=== PATIENT | female | born 2000 | race Caucasian/White ===

== ENCOUNTER 2022-08-16 15:52 | Emergency (ER) | payer BC, SELFPAY ==
--- NOTE | ~2022-08-16 | XR_ITS ---
EXAM: XR ankle LT min 3V DATE: 08/16/2022 16:53 HISTORY: TRAUMA GRD LEVEL FALL . COMPARISON: None available. FINDINGS: Normal mineralization. No fracture or dislocation. No lytic or blastic lesion. Joint space s are maintained. No erosion or periosteal change. Soft tissues within normal limits. IMPRESSION: No acute osseous finding in the left ankle. Reviewed, dictated and finalized at location K.
--- NOTE | ~2022-08-16 | XR_ITS ---
XR knee LT 3V 08/16/2022 16:54 INDICATION: Left knee pain PROCEDURE: 4 views left knee COMPARISON: No prior studies for comparison. FINDINGS: Fracture, dislocation or subluxation is not identified. The soft tissues appear within norm al limits. No foreign bodies are identified. IMPRESSION: 1: NO ACUTE BONE OR JOINT ABNORMALITY IDENTIFIED. Reviewed, dictated and finalized at location A.
[2022-08-16 15:55] VITALS: BP 96/77; PULSE 83; RESP 16; TEMP 36.6; O2SAT 97
--- NOTE | 2022-08-16 16:31 | ED.LOWEXIN ---
HPI - Extremity Injury (Lower) General Chief Complaint: Extremity Injury, Lower Stated Complaint: left knee pain Time Seen by Provider: 08/16/22 16:24 Source: patient Mode of arrival: ambulatory Limitations: no limitations History of Present Illness HPI Narrative: PATIENT IS A 22-YEAR-OLD WHITE FEMALE SLIPPED ON WET FLOOR HIT HER LEFT ANKLE AND KNEE COMPLAINS OF PAIN AND LIMPING. NO PREVIOUS INJURY. NO OTHER INJURIES. THIS OCCURRED AROUND 3:30 P.M. TODAY. SHE STATED SHE FELT A LITTLE DIZZY SAID SHE DID NOT HAVE ANY LOSS OF CONSCIOUSNESS OR HIT HER HEAD SHE DENIES ANY NUMBNESS OR TINGLING. OR WEAKNESS. DENIES ANY HIP FOOT PAIN . DENIES ANY DIFFICULTY BREATHING OR COUGH. DID NOT TAKE ANY FOR PAIN. Related Data Home Medications Medication Instructions Recorded Confirmed No Home Medications 08/16/22 08/16/22 Allergies Allergy/AdvReac Type Severity Reaction Status Date / Time No Known Allergies Allergy Verified 08/16/22 16:07 Review of Systems Review of Systems: All systems reviewed & are unremarkable except as noted in HPI and below Musculoskeletal: Musculoskeletal: Reports as per HPI, Denies back pain, Denies myalgias, Reports arthralgias, Denies joint swelling and Denies muscle cramps Integumentary/Breasts: Comments: BRUISING AND SCRATCH TO LEFT KNEE FROM DOG RECENTLY. Exam Narrative: PATIENT IS A WHITE FEMALE SHE APPEARS IN NO APPARENT DISTRESS LEFT LOWER EXTREMITY: LEFT HIP NONTENDER FULL RANGE OF MOTION LEFT THIGH NONTENDER LEFT KNEE FULL RANGE OF MOTION MILD TENDERNESS WITH MILD SWELLING INFERIOR TO THE PATELLA WITH BRUISING AND A SMALL SCRATCH MEDIAL TO THE KNEECAP. LEFT KNEE STABLE TO VARUS AND VALGUS STRESS. NEGATIVE EVELYN'S NEGATIVE ANTERIOR AND POSTERIOR DRAWER TEST. LEFT LEG IS NONTENDER LEFT ANKLE MILD MEDIAL AND LATERAL MALLEOLAR TENDERNESS INFERIORLY RANGE OF MOTION OF THE LEFT HIP KNEE ANKLE AND FOOT ARE NORMAL WITH AND FULL. DP AND PT PULSES ARE +2 GAIT ANTALGIC. Course Course Emergency Course: PATIENT WAS GIVEN TYLENOL 1000 MG. XRAYS L ANKLE AND KNEES NAD. Vital Signs Vital signs: Vital Signs Temperature 36.6 C 08/16/22 15:55 Pulse Rate 83 08/16/22 15:55 Respiratory Rate 16 08/16/22 15:55 Blood Pressure 96/77 L 08/16/22 15:55 Pulse Oximetry 97 08/16/22 15:55 Oxygen Delivery Room Air 08/16/22 15:55 Temperature 36.6 C 08/16/22 15:55 Pulse Rate 83 08/16/22 15:55 Respiratory Rate 16 08/16/22 15:55 Blood Pressure 96/77 L 08/16/22 15:55 Pulse Oximetry 97 08/16/22 15:55 Oxygen Delivery Room Air 08/16/22 15:55 Discharge Plan Discharge Clinical Impression: Contusion of knee, left, Ankle sprain and strain, Left knee sprain Patient Disposition: Home, Self-Care Condition: Stable Instructions: Ankle Sprain (ED), Knee Sprain (ED), Knee Pain (ED) Additional Instructions: TYLENOL AND/OR IBUPROFEN FOR PAIN. ICE PACKS FOR 20 MINUTES NEEDED FOR PAIN OR SWELLING. CRUTCHES FOR COMFORT. AIR GEL SPLINT FOR COMFORT. FOLLOW-UP WITH PRIVATE MEDICAL DOCTOR IN 1 WEEK IF STILL HAVE ANY DISCOMFORT. Prescriptions: No Action No Home Medications Follow-up/Referrals: UNKNOWN,DOCTOR [Primary Care Provider] - Time of Disposition: 17:49
[2022-08-16] MEDS: ACETAMINOPHEN 500 MG TABLET 1000 MG PO (17:19)
[2022-08-16 17:55] VITALS: BP 98/70; PULSE 80; RESP 16; O2SAT 99
== END 2022-08-16 17:55 | disposition home or self-care (01) ==
PROVIDERS: Emergency Provider Emergency Medicine
DX: S80.02XA Contusion of left knee, initial encounter (principal); S93.402A Sprain of unspecified ligament of left ankle, initial encounter; S83.92XA Sprain of unspecified site of left knee, initial encounter; W01.0XXA Fall on same level from slipping, tripping and stumbling without subsequent striking against object, initial encounter
CPT/HCPCS: 73562; 73610; 99284; L4350